=== PATIENT | male | born 1960 | race Caucasian/White ===

== ENCOUNTER → 2025-05-20 12:30 | Outpatient (BNVA) | payer OTHER, SELFPAY | PROVIDERS: PCP Nurse Practitioner Family; Visit Provider Nurse Practitioner Family | DX: R53.83 Other fatigue (principal); W57.XXXA Bitten or stung by nonvenomous insect and other nonvenomous arthropods, initial encounter | CPT/HCPCS: 86160; 86618; 86666; 86668; 86757 ==